=== PATIENT | female | born 1990 | race African-American/Black ===

== ENCOUNTER 2019-01-30 15:05 | Emergency (ER) | payer MEDICARE, MEDICAID ==
[~2019-01-30] VITALS: Ht 162.6 cm; Wt 92.0 kg
[~2019-01-30 15:05] MED LIST: IBUPROFEN
[2019-01-30 15:26] VITALS: BP 118/75
[2019-01-30] MEDS ORDERED: IBUPROFEN 600MG TABLET PO ONE (16:00)
== END 2019-01-30 19:12 | disposition home or self-care (01) ==
LOC: ER 15:05
DX: M26.621 Arthralgia of right temporomandibular joint (principal); I88.9 Nonspecific lymphadenitis, unspecified
CPT/HCPCS: 99283